=== PATIENT | female | born 2000 | race African-American/Black ===

== ENCOUNTER 2020-05-26 10:33 | Emergency (ER) | payer MEDICAID ==
[~2020-05-26] VITALS: Ht 162.6 cm; Wt 52.2 kg
[2020-05-26] MEDS ORDERED: VALCYTE450 MG PO (10:47)
[2020-05-26] MEDS ORDERED: [UNRECOGNIZED DRUG - OTHER] SUBQ (10:47)
[2020-05-26] MEDS ORDERED: CALCIUM CARBON500 MG PO (10:47)
[2020-05-26] MEDS ORDERED: VITAMIN D21250 MC1 PO (10:48)
[2020-05-26] MEDS ORDERED: MELATONIN5 MG PO (10:48)
[2020-05-26] MEDS ORDERED: ADVAIR 250-501 EACH INH (10:49)
[2020-05-26] MEDS ORDERED: COLACE CLEAR50 MG PO (10:49)
[2020-05-26] MEDS ORDERED: VIVELLE-DOT1 EAC1 TD (10:49)
[2020-05-26] MEDS ORDERED: FLUOXETINE HCL40 MG PO (10:50)
[2020-05-26] MEDS ORDERED: MEDROXYPROGESTE10 MG PO (10:50)
[2020-05-26] MEDS ORDERED: NEURONTIN 300M300 M2 PO (10:50)
[2020-05-26] MEDS ORDERED: NORVASC 2.5 MG2.5 M1 PO (10:51)
[2020-05-26] MEDS ORDERED: PREDNISONE 5 MG5 M1 PO (10:51)
[2020-05-26] MEDS ORDERED: ROCALTROL0.5 MCG PO (10:51)
[2020-05-26] MEDS ORDERED: MYCOPHENOLATE500 MG PO (10:51)
[2020-05-26] MEDS ORDERED: ANTACID325 MG PO (10:52)
[2020-05-26] MEDS ORDERED: CELLCEPT 250 M250 M1 PO (10:52)
[2020-05-26] MEDS ORDERED: RENVELA0.8 GM PO (10:52)
[2020-05-26] MEDS ORDERED: FUROSEMIDE 20 M20 MG PO (10:53)
[2020-05-26] MEDS ORDERED: PROAIR HFA8.5 GM INH (10:53)
[2020-05-26] MEDS ORDERED: AZITHROMYCIN500 MG PO (11:07)
[2020-05-26 11:35] VITALS: BP 125/85
== END 2020-05-26 11:35 | disposition home or self-care (01) ==
LOC: M.ERS 10:33
DX: J02.9 Acute pharyngitis, unspecified (principal); N18.3 Chronic kidney disease, stage 3 (moderate); J45.909 Unspecified asthma, uncomplicated; Z88.1 Allergy status to other antibiotic agents; Z91.041 Radiographic dye allergy status; Z88.6 Allergy status to analgesic agent; Z79.899 Other long term (current) drug therapy

== ENCOUNTER 2020-10-11 23:28 | Emergency (ER) | payer MEDICAID ==
[~2020-10-11] VITALS: Ht 162.6 cm; Wt 42.2 kg
[~2020-10-11 23:28] MED LIST: ADVAIR 250-501 EACH INH; ANTACID325 MG PO; AZITHROMYCIN500 MG PO; CALCIUM CARBON500 MG PO; CELLCEPT 250 M250 M1 PO; COLACE CLEAR50 MG PO; FLUOXETINE HCL40 MG PO; FUROSEMIDE 20 M20 MG PO; MEDROXYPROGESTE10 MG PO; MELATONIN5 MG PO; MYCOPHENOLATE500 MG PO; NEURONTIN 300M300 M2 PO; NORVASC 2.5 MG2.5 M1 PO; PREDNISONE 5 MG5 M1 PO; PROAIR HFA8.5 GM INH; RENVELA0.8 GM PO; ROCALTROL0.5 MCG PO; VALCYTE450 MG PO; VITAMIN D21250 MC1 PO; VIVELLE-DOT1 EAC1 TD; [UNRECOGNIZED DRUG - OTHER] SUBQ
[2020-10-11] MEDS ORDERED: ANTACID650 MG PO (23:36)
[2020-10-11] MEDS ORDERED: CALCIUM CARBON500 MG PO (23:36)
[2020-10-11] MEDS ORDERED: AMOXICILLIN 50500 MG PO (23:36)
[2020-10-11] MEDS ORDERED: ERGOCALCIF200 MCG/1 PO (23:37)
[2020-10-11] MEDS ORDERED: PROZAC40 MG PO (23:37)
[2020-10-11] MEDS ORDERED: RENVELA0.8 GM PO (23:38)
[2020-10-11] MEDS ORDERED: PREDNISONE 10 M10 M1 PO (23:38)
[2020-10-11] MEDS ORDERED: MELATONIN5 MG SUBLING (23:38)
[2020-10-11] MEDS ORDERED: VALGANCICLOVIR450 MG PO (23:39)
[2020-10-11] MEDS ORDERED: BACTRIM DS TAB1 EACH PO (23:39)
[2020-10-12 00:14] LABS: ABSOLUTE BASOPHILS 0.2 thou/uL (0.0-0.2); ABSOLUTE EOSINOPHILS 0.5 thou/uL (0.0-0.7); ABSOLUTE LYMPHOCYTES 3.7 thou/uL (0.8-5.3); ABSOLUTE MONOCYTES 0.7 thou/uL (0.0-1.2); ABSOLUTE NEUTROPHILS 6.9 thou/uL (1.6-8.1); BASOPHILS 1.4 %; EOSINOPHILS 4.6 %; HEMATOCRIT 35.5 % (37.0-47.0); HEMOGLOBIN 11.5 gm/dL (12.0-15.0); LYMPHOCYTES 30.7 %; MCHC 32.3 g/dL (28.0-37.0); MCV 95.9 fL (80.0-100.0); MONOCYTES 5.6 %; MPV 8.6 fl. (7.2-11.1); NUCLEATED RBCS 0 /100WBC; PLATELET COUNT* 354 thou/uL (150-400); POLYS 57.7 %; RDW-CV 14.2 % (10.5-14.5); WBC 11.9 thou/uL (4.0-11.0)
[2020-10-12 00:23] LABS: CREATININE 3.4 mg/dL (0.6-1.3); POTASSIUM 4.6 mmol/L (3.5-5.1)
[2020-10-12 00:24] LABS: PROTIME 10.6 Seconds (9.20-11.50)
[2020-10-12 00:27] LABS: ALBUMIN 3.7 g/dL (3.4-5.0); MAGNESIUM 2.2 mg/dL (1.8-2.4); TOTAL BILIRUBIN 0.2 mg/dL (<0.1-1.0); TOTAL PROTEIN 7.7 g/dL (6.4-8.2)
[2020-10-12 03:30] VITALS: BP 141/97
--- NOTE | 2020-10-12 14:07 | EKG ---
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2000 Requested By: Nina Ramirez Order Number: [id number] MD: Giovanny Obrien Measurements Intervals [place] Rate: 87 P: 29 MS: 113 QRS: 50 QRSD: 77 T: 46 QT: 370 QTc: 445 Interpretive Statements Sinus rhythm Borderline short MS interval Baseline wander in lead(s) V4 No previous ECG available for comparison Electronically Signed On 10-12-2020 14:07:07 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
== END 2020-10-12 03:32 | disposition home or self-care (01) ==
LOC: M.ERS 23:28
PROVIDERS: Personal Emergency Response Attendant
DX: R06.02 Shortness of breath (principal); I12.9 Hypertensive chronic kidney disease with stage 1 through stage 4 chronic kidney disease, or unspecified chronic kidney disease; N18.9 Chronic kidney disease, unspecified; Z79.2 Long term (current) use of antibiotics; Z79.899 Other long term (current) drug therapy; Z88.1 Allergy status to other antibiotic agents; Z88.8 Allergy status to other drugs, medicaments and biological substances; Z91.041 Radiographic dye allergy status; Z20.828 Contact with and (suspected) exposure to other viral communicable diseases

== ENCOUNTER 2021-02-21 21:44 | Inpatient (IN) | payer MEDICAID ==
[~2021-02-21] VITALS: Ht 162.6 cm; Wt 49.9 kg
[~2021-02-21 21:44] MED LIST changes: +AMOXICILLIN 50500 MG PO; +ANTACID650 MG PO; +BACTRIM DS TAB1 EACH PO; +ERGOCALCIF200 MCG/1 PO; +MELATONIN5 MG SUBLING; +PREDNISONE 10 M10 M1 PO; +PROZAC40 MG PO; +VALGANCICLOVIR450 MG PO
[2021-02-21 22:01] VITALS: BP 174/118
[2021-02-21] MEDS ORDERED: BIRTH CONTROL PILL (22:10)
[2021-02-21] MEDS ORDERED: XOPENEX HFA15 GM (22:11)
[2021-02-21] MEDS ORDERED: TYLENOL325 M1 PO (22:11)
[2021-02-21] MEDS ORDERED: KAYEXALATE15 GM/601 (22:12)
[2021-02-21] MEDS ORDERED: DORYX MPC120 MG PO (22:12)
[2021-02-21] MEDS ORDERED: AMOXICILLIN 50500 MG PO (22:12)
[2021-02-21] MEDS ORDERED: CARVEDILOL6.25 M1 PO (22:13)
[2021-02-21] MEDS ORDERED: WIXELA 100-501 EACH IH (22:14)
[2021-02-21 22:39] LABS: ABSOLUTE BASOPHILS 0.1 thou/uL (0.0-0.2); ABSOLUTE EOSINOPHILS 0.2 thou/uL (0.0-0.7); ABSOLUTE LYMPHOCYTES 3.7 thou/uL (0.8-5.3); ABSOLUTE MONOCYTES 0.9 thou/uL (0.0-1.2); ABSOLUTE NEUTROPHILS 4.5 thou/uL (1.6-8.1); EOSINOPHILS 2.2 %; HEMATOCRIT 37.5 % (37.0-47.0); HEMOGLOBIN 12.4 gm/dL (12.0-15.0); LYMPHOCYTES 39.1 %; MCH 32.3 pg (26.0-34.0); MCHC 33.1 g/dL (28.0-37.0); MCV 97.5 fL (80.0-100.0); MPV 8.6 fl. (7.2-11.1); NUCLEATED RBCS 0 /100WBC; PLATELET COUNT* 323 thou/uL (150-400); POLYS 47.7 %; RBC 3.85 mil/uL (4.20-5.00); WBC 9.4 thou/uL (4.0-11.0)
[2021-02-21 22:50] LABS: PROTIME 10.4 Seconds (9.20-11.50)
[2021-02-21 22:53] LABS: CALCIUM 8.5 mg/dL (8.5-10.1); CREATININE 4.7 mg/dL (0.6-1.3); POTASSIUM 4.3 mmol/L (3.5-5.1)
[2021-02-21 23:05] LABS: URINE BILIRUBIN NEGATIVE (Negative); URINE BLOOD 1+ (Negative); URINE CLARITY CLEAR; URINE COLOR YELLOW; URINE GLUCOSE-RANDOM NEGATIVE (Negative); URINE KETONES NEGATIVE (Negative); URINE LEUKOCYTES-REFLEX 1+ (Negative); URINE NITRITE-REFLEX NEGATIVE (Negative); URINE PROTEIN 2+ (Negative); URINE SPECIFIC GRAVITY 1.015 (1.005-1.030); URINE UROBILINOGEN 0.2 E.U./dl (0.2-1.0)
[2021-02-21 23:07] LABS: ALBUMIN 4.2 g/dL (3.4-5.0); MAGNESIUM 2.3 mg/dL (1.8-2.4); TOTAL BILIRUBIN 0.3 mg/dL (<0.1-1.0); TOTAL PROTEIN 7.7 g/dL (6.4-8.2)
[2021-02-21 23:10] LABS: BACTERIA-REFLEX 1-9 Few /HPF (None Seen); CASTS None Seen /LPF (None Seen); CRYSTALS None Seen /LPF (None Seen); MUCUS None Seen strn/LPF (None Seen); SQUAMOUS >10 Many /LPF (0-3); URINE RBC 0-2 Rare /HPF (0-2); URINE WBC-REFLEX 6-15 Few /HPF (0-5)
[2021-02-22 00:55] VITALS: BP 158/102
[2021-02-22 07:49] VITALS: BP 130/88
[2021-02-22 12:00] VITALS: BP 163/110
--- NOTE | 2021-02-22 12:12 | EKG ---
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
[2021-02-22 13:21] VITALS: BP 130/88
--- NOTE | 2021-02-22 13:50 | EKG ---
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
--- NOTE | 2021-02-23 11:58 | CON ---
[address] [address] CONSULTATION Name: ANNA MARIE BOGGS Room: [address] IN M.R.#: [id number] Admission: 02/21/21 Attend Phys: Miguel Oquendo Discharge: 02/22/21 Date of : 00 Report #: [id number] THIS REPORT FOR: cc: JACINTO - Mojgan family physician/PCP JACINTO - No family physician/PCP Harrison Galvez MD ~ DOC #: [id number] Harrison Galvez MD DATE OF CONSULTATION: 02/22/2021 REQUESTING PHYSICIAN: Dr. Sim. REASON FOR CONSULTATION: Acute on chronic kidney disease. HISTORY OF PRESENT ILLNESS: The patient is a 20-year-old female with a very complicated medical history. 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 Acosta at [facility]. She also had CMV bacteremia, shock, was on ECMO machine for some time and then developed renal failure. A kidney biopsy done 3 years ago that revealed that she had collapsing focal segmental glomerulosclerosis, was treated with prednisone and tacrolimus, but did not tolerate tacrolimus. She was also placed on CellCept and the CellCept was stopped as well. Unfortunately, her kidney function slowly deteriorating over the last 5 months, fluctuating between as high as 4.2 to 3.4. She was admitted today with complaints of not feeling well, having some headache and it was found that her creatinine was 4.7. SOCIAL HISTORY: No tobacco, no alcohol abuse. FAMILY HISTORY: No history of renal problems. MEDICATIONS: All her immunosuppressive medications were stopped. REVIEW OF SYSTEMS: Feels fine now. No more headaches, no nausea, no vomiting, no chest pain. PHYSICAL EXAMINATION: GENERAL: She is awake, alert, oriented. She is lying flat in her bed with no complaints. VITAL SIGNS: Most recent blood pressure is 130/88 although blood pressure was as high as 174/118 on admission. HEENT: Pupils are round. NECK: Supple. LUNGS: Clear. CARDIOVASCULAR: [place] [address] CONSULTATION Name: ANNA MARIE BOGGS Room: [address] IN [facility]#: [id number] Admission: 02/21/21 Attend Phys: Miguel Oquendo Discharge: 02/22/21 Date of : 00 Report #: [id number] ABDOMEN: Soft. LOWER EXTREMITIES: Without edema. LABORATORY DATA: Lab report revealed serum sodium of 139, potassium 4.3, chloride 106, carbon dioxide 21, BUN ____, creatinine 4.7, magnesium 2.3, calcium 8.5. ASSESSMENT AND PLAN: 1. Acute on chronic kidney disease. She has a confirmed diagnosis of collapsing FSGS. In the past, she had problems with acute kidney injury due to volume depletion. She has been getting some IV fluids now. Her blood pressure needs to be well controlled. Unfortunately, it is possible that she is going to require dialysis soon. There is no need for immediate dialysis. 2. 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 Discussed with Dr. Acosta. We will monitor that. Deferred to primary care physician, but we will need to make sure that she does not have any infection now. Clinically, again she does not look septic and her white count is normal at 9.4. There is no left shift, no bands were present. She has 47.7% neutrophils. PLAN: As discussed above. Follow labs. MD JESSICA Shelton/ZULY <ELECTRONICALLY SIGNED> By: Harrison Galvez MD 02/23/21 1158 1037 2006Alexalex Galvez MD /nt
== END 2021-02-22 15:20 | disposition short-term general hospital (02) | DRG 683 ==
LOC: M.ERS 21:44 → M.TBA-ER 23:40 → M.2W 02-22 01:00
PROVIDERS: Emergency Medicine; ADMIT Internal Medicine; ATTEND Internal Medicine
DX: N17.9 Acute kidney failure, unspecified (principal); Z94.81 Bone marrow transplant status; N18.4 Chronic kidney disease, stage 4 (severe); I12.9 Hypertensive chronic kidney disease with stage 1 through stage 4 chronic kidney disease, or unspecified chronic kidney disease; G43.109 Migraine with aura, not intractable, without status migrainosus; Z88.8 Allergy status to other drugs, medicaments and biological substances; Z91.041 Radiographic dye allergy status

== ENCOUNTER 2021-04-01 11:01 | Emergency (ER) | payer MEDICAID ==
[~2021-04-01] VITALS: Ht 162.6 cm; Wt 53.1 kg
[~2021-04-01 11:01] MED LIST changes: +BIRTH CONTROL PILL; +CARVEDILOL6.25 M1 PO; +DORYX MPC120 MG PO; +KAYEXALATE15 GM/601; +TYLENOL325 M1 PO; +WIXELA 100-501 EACH IH; +XOPENEX HFA15 GM
[2021-04-01] MEDS ORDERED: VISTARIL50 MG PO (11:12)
[2021-04-01 13:00] LABS: ABSOLUTE BASOPHILS 0.1 thou/uL (0.0-0.2); ABSOLUTE EOSINOPHILS 0.2 thou/uL (0.0-0.7); ABSOLUTE LYMPHOCYTES 2.1 thou/uL (0.8-5.3); ABSOLUTE MONOCYTES 0.7 thou/uL (0.0-1.2); ABSOLUTE NEUTROPHILS 5.8 thou/uL (1.6-8.1); BASOPHILS 0.9 %; EOSINOPHILS 1.9 %; HEMATOCRIT 39.3 % (37.0-47.0); HEMOGLOBIN 13.1 gm/dL (12.0-15.0); LYMPHOCYTES 23.8 %; MCH 32.1 pg (26.0-34.0); MCHC 33.3 g/dL (28.0-37.0); MCV 96.4 fL (80.0-100.0); MONOCYTES 8.4 %; MPV 8.5 fl. (7.2-11.1); NUCLEATED RBCS 0 /100WBC; PLATELET COUNT* 313 thou/uL (150-400); RBC 4.08 mil/uL (4.20-5.00); RDW-CV 14.9 % (10.5-14.5); WBC 8.9 thou/uL (4.0-11.0)
[2021-04-01 13:12] LABS: ALBUMIN 4.4 g/dL (3.4-5.0); POTASSIUM 3.9 mmol/L (3.5-5.1); TOTAL BILIRUBIN 0.3 mg/dL (<0.1-1.0); TOTAL PROTEIN 8.7 g/dL (6.4-8.2)
[2021-04-01 13:51] LABS: URINE BILIRUBIN NEGATIVE (Negative); URINE BLOOD 3+ (Negative); URINE CLARITY CLEAR; URINE COLOR YELLOW; URINE GLUCOSE-RANDOM NEGATIVE (Negative); URINE KETONES NEGATIVE (Negative); URINE LEUKOCYTES NEGATIVE (Negative); URINE NITRITE NEGATIVE (Negative); URINE PROTEIN 2+ (Negative); URINE UROBILINOGEN 0.2 E.U./dl (0.2-1.0)
[2021-04-01 14:04] LABS: ESR (SEDRATE) 20 mm/hr (0-20)
[2021-04-01 14:11] LABS: AMP/METHAMP Negative (Negative); BARBITURATES Negative (Negative); BENZODIAZEPINES Negative (Negative); COCAINE Negative (Negative); METHADONE Negative (Negative); OPIATES Negative (Negative); PCP Negative (Negative); THC Negative (Negative)
[2021-04-01 14:12] LABS: CASTS None Seen /LPF (None Seen); SQUAMOUS 0-3 Few /LPF (0-3); URINE RBC 0-2 Rare /HPF (0-2); URINE WBC 0-5 Rare /HPF (0-5)
[2021-04-01 14:13] LABS: BACTERIA None Seen /HPF (None Seen); CRYSTALS None Seen /LPF (None Seen)
[2021-04-01] MEDS ORDERED: CEPHALEXIN500 MG PO (14:15)
[2021-04-01] MEDS ORDERED: MUPIROCIN1 GM TOP (14:16)
[2021-04-01 15:00] VITALS: BP 150/105
--- NOTE | 2021-04-01 15:57 | EKG ---
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 04/01/21 1556 1235 1235 Shay Streeter MD, [facility] /EPI
== END 2021-04-01 15:01 | disposition home or self-care (01) ==
LOC: M.ERS 11:01
PROVIDERS: Physician Assistant
DX: N18.9 Chronic kidney disease, unspecified (principal); B99.9 Unspecified infectious disease; Z88.4 Allergy status to anesthetic agent; Z88.1 Allergy status to other antibiotic agents; Z91.041 Radiographic dye allergy status

== ENCOUNTER 2021-04-16 14:31 | Emergency (ER) | payer MEDICAID ==
[~2021-04-16] VITALS: Ht 160 cm; Wt 54.4 kg
[~2021-04-16 14:31] MED LIST changes: +CEPHALEXIN500 MG PO; +MUPIROCIN1 GM TOP; +VISTARIL50 MG PO
[2021-04-16 15:34] LABS: ABSOLUTE BASOPHILS 0.1 thou/uL (0.0-0.2); ABSOLUTE EOSINOPHILS 0.2 thou/uL (0.0-0.7); ABSOLUTE LYMPHOCYTES 2.8 thou/uL (0.8-5.3); ABSOLUTE MONOCYTES 0.8 thou/uL (0.0-1.2); ABSOLUTE NEUTROPHILS 5.4 thou/uL (1.6-8.1); EOSINOPHILS 2.5 %; HEMATOCRIT 37.4 % (37.0-47.0); HEMOGLOBIN 12.3 gm/dL (12.0-15.0); LYMPHOCYTES 30.2 %; MCH 31.9 pg (26.0-34.0); MCHC 32.9 g/dL (28.0-37.0); MCV 96.8 fL (80.0-100.0); MONOCYTES 8.8 %; MPV 8.2 fl. (7.2-11.1); NUCLEATED RBCS 0 /100WBC; PLATELET COUNT* 460 thou/uL (150-400); POLYS 57.5 %; RBC 3.87 mil/uL (4.20-5.00); RDW-CV 14.7 % (10.5-14.5); WBC 9.4 thou/uL (4.0-11.0)
[2021-04-16 15:46] LABS: CALCIUM 8.7 mg/dL (8.5-10.1); CREATININE 4.2 mg/dL (0.6-1.3); POTASSIUM 3.7 mmol/L (3.5-5.1)
[2021-04-16 16:12] VITALS: BP 144/103
--- NOTE | 2021-04-18 13:58 | EKG ---
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
== END 2021-04-16 16:14 | disposition home or self-care (01) ==
LOC: M.ERS 14:31
PROVIDERS: Emergency Medicine
DX: I13.10 Hypertensive heart and chronic kidney disease without heart failure, with stage 1 through stage 4 chronic kidney disease, or unspecified chronic kidney disease (principal); N18.4 Chronic kidney disease, stage 4 (severe); Z91.041 Radiographic dye allergy status; Z88.8 Allergy status to other drugs, medicaments and biological substances